=== PATIENT | female | born 1985 | race Two or more races ===

== ENCOUNTER → 2025-02-20 | Outpatient (CLI) | payer MEDICAID, SELFPAY ==
--- NOTE | 2025-02-20 15:00 | XR_ITS ---
Examination: Abdomen sonogram, complete Date and time of exam: February 20, 2025, 1512 hours INDICATIONS: Left upper abdominal pain beginning 7 months ago. Technique: Multiple real-time grayscale transabdominal sonographic images of the abdomen have been obtained. Findings: Absent gallbladder Normal common bile duct 0.2 cm Pancreatic head 2.4 cm Aorta not enlarged. Liver 16.4 cm fatty infiltration Normal hepatopetal portal venous Patent IVC Right kidney 11.3 cm renal cortex 1.9 cm Left kidney 10.3 cm renal cortex 2.1 cm Mild scar formation Spleen 9.6 cm IMPRESSION: Normal common bile duct Mild hepatomegaly fatty liver
== END | disposition home or self-care (01) ==
PROVIDERS: PCP Specialist; Referring Provider Specialist; Visit Provider Specialist
DX: K76.0 Fatty (change of) liver, not elsewhere classified (principal)
CPT/HCPCS: 76700